=== PATIENT | female | born 1950 | race Caucasian/White ===

== ENCOUNTER → 2017-11-01 11:47 | Outpatient (CLI) | payer MEDICARE, SELFPAY ==
--- NOTE | 2017-11-01 11:48 | DI.MRI.S_ITS ---
PROCEDURE: MR LUMBAR SPINE WO CON INDICATIONS: Lumbosacral spondylosis with left greater right lower extrem TECHNIQUE: Noncontrast sagittal T1 spin echo and T2 fast echo, sagittal STIR, axial T1 and T2 fast spin echo through the lumbar spine. In cases with scoliosis, additional coronal T2 fast spin echo may be performed. COMPARISON: None. FINDINGS: Image quality: Excellent. Alignment and Curvature: There is normal bony alignment. Bone Marrow: Marrow is of normal overall signal. No acute vertebral body compression fractures. Scattered foci are seen, which are hyperintense on T1-weighted and T2-weighted imaging, which are most consistent with benign vertebral body hemangiomas. Spinal Cord: Conus medullaris terminates at the L1 level. Visualized cord demonstrates normal signal and size. Paraspinous Soft Tissues: No paravertebral masses. T12-L1: Normal appearance. L1-L2: Normal appearance. L2-L3: Normal appearance. L3-L4: Normal appearance. L4-L5: Normal appearance. L5-S1: The disc height is well-preserved. Loss of disc signal is seen at this level. Mild facet joint hypertrophy is seen. Ubod-bi-byexsxtk bilateral neural foraminal narrowing is seen, left greater than right. Minimal central canal narrowing is seen. IMPRESSION: Focal L5-S1 degenerative change is seen. Dictated by: Frank Mata M.D. on 11/01/2017 at 13:10 Approved by: Frank Mata M.D. on 11/01/2017 at 13:12
== END ==
PROVIDERS: PCP Internal Medicine Geriatric Medicine; Visit Provider Physical Medicine & Rehabilitation
DX: M47.27 Other spondylosis with radiculopathy, lumbosacral region (principal); M48.07 Spinal stenosis, lumbosacral region; R25.2 Cramp and spasm
CPT/HCPCS: 72148

== ENCOUNTER → 2017-11-04 11:28 | Outpatient (CLI) | payer MEDICARE, SELFPAY ==
--- NOTE | 2017-11-04 11:30 | DI.RAD.S_ITS ---
PROCEDURE: XR LUMBAR SPINE MIN 4V INDICATIONS: Other intervertebral disc displacement, lumbosacral region TECHNIQUE: 5 views of the lumbar spine were acquired, including both obliques. COMPARISON: None. FINDINGS: Bones: 5 nonrib-bearing vertebrae are present. There is normal bony alignment. No vertebral body compression fractures. No suspicious bony lesions. Soft tissues: Overlying bowel gas pattern is normal. No suspicious soft tissue calcifications. Oblique images: No pars defects. IMPRESSION: There is only a mild degree of degenerative disc disease is seen at L5-S1, and mild facet osteoarthritis along the lumbosacral spine also best seen at L5-S1. No subluxation is associated. No definite spinal or foraminal stenosis is found. Dictated by: Christopher Llamas M.D. on 11/04/2017 at 12:00 Approved by: Christopher Llamas M.D. on 11/04/2017 at 12:01
== END ==
PROVIDERS: PCP Internal Medicine Geriatric Medicine; Visit Provider Physical Medicine & Rehabilitation
DX: M51.17 Intervertebral disc disorders with radiculopathy, lumbosacral region (principal); M47.27 Other spondylosis with radiculopathy, lumbosacral region; M25.50 Pain in unspecified joint; R25.2 Cramp and spasm; M54.17 Radiculopathy, lumbosacral region; M51.27 Other intervertebral disc displacement, lumbosacral region
CPT/HCPCS: 72110; 99213

== ENCOUNTER 2017-11-15 13:05 | Outpatient (CLI) | payer MEDICARE, SELFPAY ==
[2017-11-15] VITALS (11 sets, daily range): BP systolic 118–137; BP diastolic 65–86; PULSE 59–65; RESP 16–18; TEMP 35.9; O2SAT 95–98
--- NOTE | 2017-11-15 13:06 | DI.RAD.S_ITS ---
PROCEDURE: PAIN L/S TRANSFORAMINAL INJECT INDICATIONS: RADICULOPATHY FINDINGS: Fluoroscopic spot filming was performed to verify placement of spinal needles at the L5-S1 level(s), as labeled on the films. Appropriate location(s) of the needle tip(s) was confirmed by injection of iodinated contrast. IMPRESSION: Fluoroscopy for pain management. Dictated by: Bharat Fitch M.D. on 11/15/2017 at 16:25 Approved by: Bharat Fitch M.D. on 11/15/2017 at 16:25
--- NOTE | 2017-11-15 14:02 | P.PCN_ITS ---
Procedures Date/Time Date of procedure: 11/15/17 Time of procedure: 13:58 General Procedure description: PREOP DIAGNOSIS 1. FORMAINAL STENOSIS WITH LE SYMPTOMS POST OP DIAGNOSIS 1. FORMAINAL STENOSIS WITH LE SYMPTOMS PROCEDURES 1. FLUOROSCOPICALLY GUIDED CONTRAST CONTROLLED TRANSFORAMINAL EPIDURAL STEROID INJECTION - Left L5/S1 PHYSICIAN: Mikal Willis DO INDICATIONS: Monique is referred by for treatment of Foraminal Stenosis with Right LE Symptoms FINDINGS Foraminal Nerve Root Compression secondary to disc disease and facet hypertrophy DESCRIPTION OF PROCEDURE: Following denial of allergy and review of potential side effects and complications, including, but not necessarily limited to, infection, allergic reaction, local tissue breakdown, stroke, temporary or permanent nerve injury, paralysis, and possible , the patient indicated that the patient understood and agreed to proceed. An informed consent document was signed by the patient, witnessed by a nurse, and placed in the patient's chart. Additionally, other treatment options including medications, modalities, and physical therapy were reviewed with the patient. After review of previous anaesthesic history and IV conscious sedation the patient was deemed safe to proceed with todays procedure with IV conscious sedation as ASA class II designation. Safety time-out was performed to confirm patient ID, procedure to be performed and site of procedure. IV sedation was accomplished with a combination of 3mg was administered by the RN after DO order , titrated to patient comfort during the course of the procedure while the patient remained responsive to all verbal commands In the prone position following sterile prep and drape of the lumbar region, the Left L5/S1 posterior neuroforamen was identified fluoroscopically. The skin was anesthetized via a 25-gauge 1.5-inch needle with 1% lidocaine solution. At this point, a 25-gauge 3.5-inch spinal needle was atraumatically introduced and advanced under fluoroscopic guidance through the posterior Left L5/S1 neuroforamen to approximately the anterior aspect of the canal. Depth was confirmed on lateral view. Following negative aspiration, injection of approximately 1.5 cc of Isovue 200 under live fluoroscopy in the AP view confirmed excellent flow along the nerve root, into the epidural space without vascular or intrathecal uptake observed Radiological data, including multiple fluoroscopic views of the lumbosacral spine, reveal a spinal needle at the Right L5/S1 posterior neuroforamen. Subsequent views show flow of contrast material flowing superiorly and inferiorly along the nerve root confirming epidural flow. Subsequently, a test dose of 1.5 cc of 1% lidocaine solution was administered and patient was observed for two minutes for signs or symptoms of complications , including abdominal pain, shortness of breath, bilateral upper or lower extremity weakness, nausea and vomiting, prior to steroid injection. At this point, a total of 3 cc or 20 mg of dexamethasone and 80mg Depo Medrol was injected without incident. The procedure tolerated the procedure well without signs or symptoms of complications prior to transfer to the recovery area continued monitoring without incident. The patient was then transferred to the recovery area where they were observed for an appropriate time after the injection. The patient reported a VAS score of 7 prior to the procedure and a post-procedure VAS of 0. Total Fluoroscopy Time: 20.9 seconds Total Conscious Sedation Time: 24min POST OP INSTRUCTIONS The patient was provided a Pain Log to continue to record their response to the target-specific procedure prior to follow-up visit with their referring physician. Additionally, specific post-injection care instructions and a contact number to our office were provided if concerns arise regarding possible complications associated with the procedure are suspected. Mikal Willis DO Complications: none
[2017-11-15] MEDS: MIDAZOLAM 5 MG/5 ML VIAL IV (14:06)
[2017-11-15] MEDS: BUPIVACAINE 0.25% (PF) VIAL 2 ML INJ (14:11)
[2017-11-15] MEDS: methylPREDNISolone acetate 80 MG/ML VIAL INJ (14:11)
[2017-11-15] MEDS: DEXAMETHASONE 10 MG/ML VIAL 20 MG INJ (14:11)
[2017-11-15] MEDS: IOPAMIDOL 15 ML VIAL 3 ML INJ (14:11)
== END 2017-11-15 15:17 ==
LOC: RAD 13:06
PROVIDERS: PCP Internal Medicine Geriatric Medicine; Visit Provider Physical Medicine & Rehabilitation
DX: M48.07 Spinal stenosis, lumbosacral region (principal); M51.17 Intervertebral disc disorders with radiculopathy, lumbosacral region; M47.27 Other spondylosis with radiculopathy, lumbosacral region
CPT/HCPCS: 64483; 99152; J1040; J1100; J2250

== ENCOUNTER 2018-06-20 10:16 | Outpatient (CLI) | payer MEDICARE, SELFPAY ==
[2018-06-20] VITALS (8 sets, daily range): BP systolic 124–156; BP diastolic 73–86; PULSE 67–73; RESP 16–18; TEMP 36.4; O2SAT 93–98
--- NOTE | 2018-06-20 10:18 | DI.RAD.S_ITS ---
PROCEDURE: PAIN L INTERLAMINAR/CAUDAL INJ INDICATIONS: INTERVERTEBRAL DISC DISPLACEMENT FINDINGS: Fluoroscopic spot filming was performed to verify placement of spinal needles at the L5-S1 level(s), as labeled on the films. Appropriate location(s) of the needle tip(s) was confirmed by injection of iodinated contrast. Dictated by: Junior Aleman M.D. on 06/21/2018 at 9:36 Approved by: Junior Aleman M.D. on 06/21/2018 at 9:36
[2018-06-20] MEDS: DEXAMETHASONE 10 MG/ML VIAL 20 MG INJ (11:24)
[2018-06-20] MEDS: MIDAZOLAM 5 MG/5 ML VIAL IV (11:24)
[2018-06-20] MEDS: BETAMETHASONE 30 MG/5 ML MDV 6 MG INJ (11:24)
[2018-06-20] MEDS: BUPIVACAINE 0.25% (PF) VIAL 2 ML INJ (11:24)
[2018-06-20] MEDS: IOPAMIDOL 15 ML VIAL 3 ML INJ (11:24)
--- NOTE | 2018-06-20 11:32 | PC.NURSE ---
PT NOTED TO BE MORE ALERT AND NOW FULLY AWAKE. CONTINUES TO C/O NUMBNESS BELOW WAIST
--- NOTE | 2018-06-20 11:41 | P.PCN_ITS ---
Procedures Date/Time Date of procedure: 06/20/18 Time of procedure: 11:39 General Procedure description: PROVIDER: Mikal Willis DO Operative Note PREOP DIAGNOSIS 1. HNP WITH RADICULAR FEATURES, 2. MULTILEVEL CENTRAL STENOSIS, POST OP DIAGNOSIS 1. HNP WITH RADICULAR FEATURES, 2. MULTILEVEL CENTRAL STENOSIS, PROCEDURES 1. FLUORSCOPICALLY GUIDED CONTRAST CONTROLLED INTERLAMINAR EPIDURAL STEROID INJECTION - L5/S1 PHYSICIAN: Mikal Willis DO INDICATIONS Monique is referred by Dr. Fernandes for treatment of Bilateral Foraminal Stenosis L>R LE symptoms. FINDINGS Multilevel Central Spinal Stenosis with Nerve Root Compression DESCRIPTION OF PROCEDURE Fluoroscopically guided, contrast-controlled L5/S1 translaminar epidural steroid injection. Following denial of allergy and review of potential side effects and complications, including, but not necessarily limited to, infection, allergic reaction, local tissue breakdown, temporary as well as permanent nerve injury, paralysis, stroke and possible , the patient indicated that the patient understood and agreed to proceed. An informed consent document was signed by the patient, witnessed by a nurse, and placed in the patient's chart. Additionally, other treatment options including modalities, medications, and physical therapy were reviewed with the patient. After review of previous anaesthesic history and IV conscious sedation the patient was deemed safe to proceed with todays procedure with IV conscious sedation as ASA class II designation. Safety time-out was performed to confirm patient ID, procedure to be performed and site of procedure. IV sedation was accomplished with a combination of 3mg of Versed administered by the RN after DO order, titrated to patient comfort during the course of the procedure while the patient remained responsive to all verbal commands. In the prone position, following sterile prep and drape of the lumbar region, the L5/S1 translaminar space was identified fluoroscopically. The skin was anesthetized via a 25-gauge, 1.5-inch needle with 1% lidocaine solution. At this point, a 22-gauge short bevel spinal needle was atraumatically introduced and advanced under fluoroscopic guidance into the region of the L5/S1 patrick slaminar space. Depth was confirmed on lateral view. Radiological data, including multiple fluoroscopic views of the lumbar spine, reveal a spinal needle at the L5/S1 translaminar space. Lateral views then show placement of the needle in the epidural space. Subsequent views show contrast material flowing superiorly and inferiorly in the epidural space. No vascular or intrathecal uptake is observed. At this point, using loss of resistance technique with saline and air, the epidural space was entered. This was confirmed following negative aspiration with injection of approximately 1.5 cc of Isovue 200, showing excellent epidural flow without vascular or intrathecal uptake. At this point, 1 cc of 1% lidocaine solution combined with 3cc including 20mg of dexamethasone and 6mg of betamethasone was injected without incident. The patent tolerated the procedure without signs of symptoms of complications prior to transfer to the recovery area for further monitoring. The patient was then transferred to the recovery area where they were observed for an appropriate period of time after the injection. The patient reported a VAS score of 6 prior to the procedure and a post-procedure VAS of 0. Total Fluoroscopy Time: 11.8 seconds Total Conscious Sedation Time: 24min POST OP INSTRUCTIONS The patient was provided a Pain Log to continue to record their response to the target-specific procedure prior to follow-up visit with their referring physician. Additionally, specific post-injection care instructions and a contact number to our office were provided if concerns arise regarding possible complications associated with the procedure are suspected. Mikal Willis DO Complications: none
--- NOTE | 2018-06-20 11:45 | PC.NURSE ---
ACCEPTED CARE OF PT IN POST PROC AREA IN STABLE CONDITION
--- NOTE | 2018-06-20 12:24 | PC.NURSE ---
pt tolerated procedure well. Able to get off table with standby assist. Transferred via wheelchair to pre procedure room and continued monitoring with Nahed BELL.
== END 2018-06-20 12:19 | disposition home or self-care (01) ==
LOC: RAD 10:17
PROVIDERS: PCP Internal Medicine Geriatric Medicine; Visit Provider Physical Medicine & Rehabilitation
DX: M51.17 Intervertebral disc disorders with radiculopathy, lumbosacral region (principal); M48.07 Spinal stenosis, lumbosacral region
CPT/HCPCS: 62323; 99152; J0702; J1100; J2250; J3010

== ENCOUNTER → 2018-07-12 13:46 | Outpatient (CLI) | payer MEDICARE, SELFPAY ==
--- NOTE | 2018-07-12 13:48 | DI.RAD.S_ITS ---
PROCEDURE: XR KNEE STANDING BI INDICATIONS: Eval TECHNIQUE: A set of 3 views of the right knee, and 3 views of the left knee. COMPARISON: None. FINDINGS: Bones: No acute fractures or dislocations. There is asymmetric joint space thinning at the lateral compartment of the left knee, when compared to normal appearance on the right. Patellar alignment is normal on the sunrise view. No suspicious bony lesions. Joint spaces appear normal with weightbearing. Soft tissues: No knee joint effusions. No suspicious soft tissue calcification. IMPRESSION: Asymmetric knee joint osteoarthritis greater on the left at the lateral compartment and at the right. No joint effusion or intra-articular loose body, or prior trauma is seen. Dictated by: Christopher Llamas M.D. on 07/12/2018 at 15:15 Approved by: Christopher Llamas M.D. on 07/12/2018 at 15:16
== END ==
PROVIDERS: PCP Internal Medicine Geriatric Medicine; Visit Provider Registered Nurse
DX: M25.561 Pain in right knee (principal); M25.562 Pain in left knee; M17.0 Bilateral primary osteoarthritis of knee; M20.60 Acquired deformities of toe(s), unspecified, unspecified foot; M25.50 Pain in unspecified joint; M47.27 Other spondylosis with radiculopathy, lumbosacral region; G89.29 Other chronic pain
CPT/HCPCS: 73565; 99214

== ENCOUNTER → 2019-12-24 13:21 | Outpatient (CLI) | payer MEDICARE, SELFPAY ==
--- NOTE | 2019-12-24 13:24 | DI.RAD.S_ITS ---
PROCEDURE: XR LUMBAR SPINE MIN 4V INDICATIONS: low back pain TECHNIQUE: 5 views of the lumbar spine were acquired. COMPARISON: [facility], CT, CT ABDOMEN PELVIS WITH CONTRAST, 11/28/2018, 13:13. [facility], CR, XR LUMBAR SPINE MIN 4V, 11/04/2017, 11:06. FINDINGS: Bones: 5 nonrib-bearing vertebrae are present. Minimal scoliosis. No vertebral body compression fractures. No suspicious bony lesions. Mild degenerative change demonstrable by small anterior osteophytes. Mild L4-L5 and L5-S1 facet joint hypertrophy. Findings similar to the prior exam. Soft tissues: Overlying bowel gas pattern is normal. No suspicious soft tissue calcifications. Oblique images: No pars defects. IMPRESSION: No compression fracture. Overall mild degenerative change similar to 2018. Dictated by: César Poe M.D. on 12/24/2019 at 15:26 Approved by: César Poe M.D. on 12/24/2019 at 15:28
== END ==
PROVIDERS: PCP Internal Medicine Geriatric Medicine; Referring Provider Physical Medicine & Rehabilitation; Visit Provider Physical Medicine & Rehabilitation
DX: M47.27 Other spondylosis with radiculopathy, lumbosacral region (principal); M47.26 Other spondylosis with radiculopathy, lumbar region
CPT/HCPCS: 72110; 99213

== ENCOUNTER → 2020-01-01 13:41 | Outpatient (CLI) | payer MEDICARE, SELFPAY ==
[2020-01-01 16:08] LABS: COVID19 -Nasal RAPID Negative (Negative)
== END ==
PROVIDERS: PCP Internal Medicine Geriatric Medicine; Visit Provider Physical Medicine & Rehabilitation
DX: Z11.59 Encounter for screening for other viral diseases (principal); Z01.812 Encounter for preprocedural laboratory examination
CPT/HCPCS: 87635; C9803

== ENCOUNTER 2020-01-03 09:54 | Outpatient (CLI) | payer MEDICARE, SELFPAY ==
[2020-01-03] VITALS (7 sets, daily range): BP systolic 125–162; BP diastolic 60–82; PULSE 68–76; RESP 9–18; TEMP 36.1; O2SAT 91–95
--- NOTE | 2020-01-03 09:58 | DI.RAD.S_ITS ---
PROCEDURE: PAIN L/S TRANSFORAMINAL INJECT INDICATIONS: SPONDYLOSIS COMPARISON: [facility], , PAIN L/S TRANSFORAMINAL INJECT, 11/15/2017, 14:06. FINDINGS: Fluoroscopic spot filming was performed to verify placement of a spinal needle on the right at the L5-S1 level, as labeled on the films. Appropriate location of the needle tip was confirmed by injection of iodinated contrast. IMPRESSION: No significant intraprocedural abnormality. Dictated by: Frank Mata M.D. on 01/03/2020 at 11:15 Approved by: Frank Mata M.D. on 01/03/2020 at 11:16
[2020-01-03] MEDS: MIDAZOLAM 5 MG/5 ML VIAL IV (11:02)
[2020-01-03] MEDS: fentaNYL 100 MCG/2 ML INJ 50 MCG IV (11:02)
[2020-01-03] MEDS: BETAMETHASONE 30 MG/5 ML MDV 6 MG INJ (11:09)
[2020-01-03] MEDS: IOPAMIDOL 15 ML VIAL 3 ML INJ (11:09)
[2020-01-03] MEDS: BUPIVACAINE 0.25% (PF) VIAL 2 ML INJ (11:09)
[2020-01-03] MEDS: DEXAMETHASONE 10 MG/ML VIAL 20 MG INJ (11:09)
--- NOTE | 2020-01-03 11:16 | PM.PROC.IR.1 ---
Date/Time/Diagnoses Date of procedure: 01/03/20 Time of procedure: 11:16 Pre-procedure diagnosis: 1. FORAMINAL STENOSIS WITH LE SYMPTOMS Post-procedure diagnosis: same Procedure Notes Procedure: 1. FLUOROSCOPICALLY GUIDED CONTRAST CONTROLLED TRANSFORAMINAL EPIDURAL STEROID INJECTION - RIGHT L5/S1 TFESI Indications: Monique Kline is referred by Dr. Fernandes for treatment of Foraminal Stenosis with right LE Symptoms Physician: Mikal Willis Total Fluoroscopy time (seconds): 12 Total sedation minutes: 12 Complications: none Procedure in detail & Post-procedure care: FINDINGS Foraminal Nerve Root Compression secondary to disc disease and facet hypertrophy DESCRIPTION OF PROCEDURE Following review of allergy and review of potential side effects and complications, including, but not necessarily limited to, infection, allergic reaction, local tissue breakdown, stroke, temporary or permanent nerve injury, paralysis, and possible , the patient indicated that the patient understood and agreed to proceed. An informed consent document was signed by the patient, witnessed by a nurse, and placed in the patient's chart. Additionally, other treatment options including medications, modalities, and physical therapy were reviewed with the patient. After review of previous anaesthesic history and IV conscious sedation the patient was deemed safe to proceed with today?s procedure with IV conscious sedation as ASA class II designation. Safety time-out was performed to confirm patient ID, procedure to be performed and site of procedure. IV sedation was accomplished with a combination of 2mg of Versed and 50mcg of Fentanyl was administered by the RN after DO order, titrated to patient comfort during the course of the procedure while the patient remained responsive to all verbal commands In the prone position following sterile prep and drape of the lumbar region, the right L5/S1 posterior neuroforamen was identified fluoroscopically. The skin was anesthetized via a 25-gauge 1.5-inch needle with 1% lidocaine solution. At this point, a 22-gauge 5-inch spinal needle was atraumatically introduced and advanced under fluoroscopic guidance through the posterior right L5/S1 neuroforamen to approximately the anterior aspect of the canal. Depth was confirmed on lateral view. Following negative aspiration, injection of approximately 1.5cc of Isovue 200 under live fluoroscopy in the AP view confirmed excellent flow along the nerve root, into the epidural space without vascular or intrathecal uptake observed Radiological data, including multiple fluoroscopic views of the lumbosacral spine, reveal a spinal needle at the right L5/S1 posterior neuroforamen. Subsequent views show flow of contrast material flowing superiorly and inferiorly along the nerve root confirming epidural flow. Subsequently, a test dose of 1.5cc of 1% lidocaine solution was administered and patient was observed for two minutes for signs or symptoms of complications, including abdominal pain, shortness of breath, bilateral upper or lower extremity weakness, nausea and vomiting, prior to steroid injection. At this point, a total of 3cc or 20mg of dexamethasone and 6mg betamethasone was injected without incident. The procedure tolerated the procedure well without signs or symptoms of complications prior to transfer to the recovery area continued monitoring without incident. The patient was then transferred to the recovery area where they were observed for an appropriate time after the injection. The patient reported a VAS score of 7 prior to the procedure and a post-procedure VAS of 0. POST OP INSTRUCTIONS The patient was provided a Pain Log to continue to record their response to the target-specific procedure prior to follow-up visit with their referring physician. Additionally, specific post-injection care instructions and a contact number to our office were provided if concerns arise regarding possible complications associated with the procedure are suspected.
== END 2020-01-03 11:33 | disposition home or self-care (01) ==
LOC: RAD 09:57
PROVIDERS: PCP Internal Medicine Geriatric Medicine; Referring Provider Physical Medicine & Rehabilitation; Visit Provider Physical Medicine & Rehabilitation
DX: M54.17 Radiculopathy, lumbosacral region (principal); M47.817 Spondylosis without myelopathy or radiculopathy, lumbosacral region
CPT/HCPCS: 64483; 99152; J0702; J1100; J2250; J3010

== ENCOUNTER → 2020-03-31 13:47 | Outpatient (CLI) | payer MEDICARE, SELFPAY ==
--- NOTE | 2020-03-31 13:48 | DI.RAD.S_ITS ---
PROCEDURE: XR KNEE LT 3V INDICATIONS: knee djd TECHNIQUE: 3 views of the knee were acquired. COMPARISON: [facility], CR, XR KNEE STANDING BI, 07/12/2018, 14:07. FINDINGS: Bones: No fractures or dislocations. No suspicious bony lesions. Minimal to mild generalized narrowing can be seen of the knee joint spaces. Soft tissues: No joint effusion. No suspicious soft tissue calcifications. IMPRESSION: Plain film study within normal limits for age. If it would be helpful for clinical management decision making, please consider a dedicated knee MRI for further evaluation (assuming that there is no contraindication). Dictated by: Frank Mata M.D. on 03/31/2020 at 13:47 Approved by: Frank Mata M.D. on 03/31/2020 at 13:48
== END ==
PROVIDERS: PCP Internal Medicine Geriatric Medicine; Referring Provider Physical Medicine & Rehabilitation; Visit Provider Physical Medicine & Rehabilitation
DX: M17.12 Unilateral primary osteoarthritis, left knee (principal); M54.17 Radiculopathy, lumbosacral region
CPT/HCPCS: 20611; 73562; 99214; J7318

== ENCOUNTER → 2023-02-22 14:30 | Outpatient (CLI) | payer MEDICARE, SELFPAY ==
--- NOTE | 2023-02-22 14:34 | DI.RAD.S_ITS ---
PROCEDURE: XR LUMBAR SPINE MIN 4V INDICATIONS: BACK PAIN TECHNIQUE: 5 views of the lumbar spine were acquired, including bilateral oblique views. COMPARISON: [facility], , XR LUMBAR SPINE MIN 4V, 12/24/2019, 13:34. FINDINGS: Bones: 5 nonrib-bearing vertebrae are present. There is very mild leftward curvature of lumbar spine with apex at L2 level . Mild degenerative endplate changes are noted throughout lumbar spine.. No vertebral body compression fractures. No suspicious bony lesions. Soft tissues: Overlying bowel gas pattern is normal. No suspicious soft tissue calcifications. Oblique images: No pars defects. IMPRESSION: Mild degenerative disc disease throughout lumbar spine. No acute compression fracture or spondylolisthesis. Very mild leftward curvature of lumbar spine centered at L2 level. No gross pars defects. Dictated by: Ray Turner M.D. on 02/22/2023 at 16:45 Approved by: Ray Turner M.D. on 02/22/2023 at 16:46
== END ==
PROVIDERS: PCP Internal Medicine Geriatric Medicine; Referring Provider Physical Medicine & Rehabilitation; Visit Provider Physical Medicine & Rehabilitation
DX: M47.27 Other spondylosis with radiculopathy, lumbosacral region (principal); M51.16 Intervertebral disc disorders with radiculopathy, lumbar region; M41.9 Scoliosis, unspecified; M17.0 Bilateral primary osteoarthritis of knee
CPT/HCPCS: 72110; 99214

== ENCOUNTER → 2023-03-07 12:20 | Outpatient (CLI) | payer MEDICARE, SELFPAY ==
--- NOTE | 2023-03-07 12:22 | DI.MRI.S_ITS ---
PROCEDURE: MR LUMBAR SPINE WO CON INDICATIONS: Left L5 radiculopathy TECHNIQUE: Noncontrast sagittal T1 spin echo and T2 fast echo, sagittal STIR, and T2 fast spin echo through the lumbar spine. In cases with scoliosis, additional coronal T2 fast spin echo may be performed. COMPARISON: [facility], CR, XR LUMBAR SPINE MIN 4V, 02/22/2023, 14:37. [facility], MR, MR LUMBAR SPINE WO CON, 11/01/2017, 12:11. FINDINGS: Image quality: Excellent. Alignment and Curvature: There is normal bony alignment. Bone Marrow: Marrow is of normal overall signal. No acute vertebral body compression fractures. Spinal Cord: Conus medullaris terminates at the L1-L2 and level. Visualized cord demonstrates normal signal and size. Paraspinous Soft Tissues: No paravertebral masses. T12-L1: Mild facet hypertrophy. No canal stenosis or foraminal stenosis. L1-L2: Mild facet hypertrophy. No canal stenosis or foraminal stenosis. L2-L3: Mild facet hypertrophy. No canal stenosis or foraminal stenosis. L3-L4: Mild facet hypertrophy. No canal stenosis or foraminal stenosis. L4-L5: Facet hypertrophy. Disc bulge. No canal stenosis. Mild bilateral foraminal stenosis. L5-S1: Normal appearance. IMPRESSION: 1. Underlying multilevel facet arthropathy. 2. Development of a large medially directed facet joint cyst off of the left facet at L4-L5, impinging on multiple left-sided nerve root structures, including the left L5 nerve root in the left lateral recess. Dictated by: Homero Luna M.D. on 03/07/2023 at 19:21 Approved by: Homero Luna M.D. on 03/07/2023 at 19:30
== END ==
PROVIDERS: PCP Internal Medicine Geriatric Medicine; Referring Provider Physical Medicine & Rehabilitation; Visit Provider Physical Medicine & Rehabilitation
DX: M47.26 Other spondylosis with radiculopathy, lumbar region (principal); M48.061 Spinal stenosis, lumbar region without neurogenic claudication; M53.86 Other specified dorsopathies, lumbar region
CPT/HCPCS: 72148

== ENCOUNTER 2023-03-22 14:56 | Outpatient (CLI) | payer MEDICARE, SELFPAY ==
[2023-03-22] VITALS (8 sets, daily range): BP systolic 130–205; BP diastolic 70–106; PULSE 75–85; RESP 13–20; TEMP 36.6; O2SAT 92–97
--- NOTE | 2023-03-22 15:30 | DI.RAD.S_ITS ---
PROCEDURE: PAIN L/S TRANSFORAMINAL INJECT INDICATIONS: STENOSIS COMPARISON: [facility], , PAIN L/S TRANSFORAMINAL INJECT, 01/03/2020, 11:04. FINDINGS: Fluoroscopic spot filming was performed to verify placement of spinal needles at the left side of L5-S1 level(s), as labeled on the films. Appropriate location(s) of the needle tip(s) was confirmed by injection of iodinated contrast. IMPRESSION: Fluoro guidance was provided intraoperatively for left-sided L5-S1 t transforaminal epidural steroid injection performed by ordering physician. Dictated by: Ray Turner M.D. on 03/22/2023 at 17:00 Approved by: Ray Turner M.D. on 03/22/2023 at 17:01
[2023-03-22] MEDS: MIDAZOLAM 2 MG/2 ML VIAL IV (16:10)
[2023-03-22] MEDS: BUPIVACAINE 0.25% (PF) VIAL 2 ML INJ (16:13)
[2023-03-22] MEDS: DEXAMETHASONE 10 MG/ML VIAL INJ (16:14)
[2023-03-22] MEDS: BETAMETHASONE 30 MG/5 ML MDV 6 MG INJ (16:14)
[2023-03-22] MEDS: iopamidoL 15 ML VIAL 3 ML INJ (16:14)
--- NOTE | 2023-03-22 16:33 | P.PCN_ITS ---
Date/Time/Diagnoses Date of procedure: 03/22/23 Time of procedure: 16:33 Pre-procedure diagnosis: 1. FORAMINAL STENOSIS WITH LE SYMPTOMS Post-procedure diagnosis: same Procedure Notes Procedure: 1. FLUOROSCOPICALLY GUIDED CONTRAST CONTROLLED TRANSFORAMINAL EPIDURAL STEROID INJECTION - LEFT L4/5 Indications: Tristin is referred by Dr. Fernandes for treatment of Foraminal Stenosis with Left LE Symptoms Physician: Mikal Willis Total Fluoroscopy time (seconds): 16 Total sedation minutes: 16 Complications: none Procedure in detail & Post-procedure care: FINDINGS Foraminal Nerve Root Compression secondary to disc disease and facet hypertrophy DESCRIPTION OF PROCEDURE Following review of allergy and review of potential side effects and complications, including, but not necessarily limited to, infection, allergic reaction, local tissue breakdown, stroke, temporary or permanent nerve injury, paralysis, and possible , the patient indicated that the patient understood and agreed to proceed. An informed consent document was signed by the patient, witnessed by a nurse, and placed in the patient's chart. Additionally, other treatment options including medications, modalities, and physical therapy were reviewed with the patient. After review of previous anaesthesic history and IV conscious sedation the patient was deemed safe to proceed with today?s procedure with IV conscious sedation as ASA class II designation. Safety time-out was performed to confirm patient ID, procedure to be performed and site of procedure. IV sedation was accomplished with a combination of 2mg of Versed administered by the RN after DO order, titrated to patient comfort during the course of the procedure while the patient remained responsive to all verbal commands In the prone position following sterile prep and drape of the lumbar region, the left L4/5 posterior neuroforamen was identified fluoroscopically. The skin was anesthetized via a 25-gauge 1.5-inch needle with 1% lidocaine solution. At this point, a 22-gauge 5-inch spinal needle was atraumatically introduced and advanced under fluoroscopic guidance through the posterior left L4/5 neuroforamen to approximately the anterior aspect of the canal. Depth was confirmed on lateral view. Following negative aspiration, injection of approximately 1.5 cc of Isovue 200 under live fluoroscopy in the AP view confirmed excellent flow along the nerve root, into the epidural space without vascular or intrathecal uptake observed Radiological data, including multiple fluoroscopic views of the lumbosacral spine, reveal a spinal needle at the left L4/5 posterior neuroforamen. Subsequent views show flow of contrast material flowing superiorly and inferiorly along the nerve root confirming epidural flow. Subsequently, a test dose of 1.5 cc of 1% lidocaine solution was administered and patient was observed for two minutes for signs or symptoms of complications, including abdominal pain, shortness of breath, bilateral upper or lower extremity weakness, nausea and vomiting, prior to steroid injection. At this point, a total of 2cc or 10mg of dexamethasone and 6mg of betamethasone was injected without incident. The procedure tolerated the procedure well without signs or symptoms of complications prior to transfer to the recovery area continued monitoring without incident. The patient was then transferred to the recovery area where they were observed for an appropriate time after the injection. The patient reported a VAS score of 7 prior to the procedure and a post- procedure VAS of 1. POST OP INSTRUCTIONS The patient was provided a Pain Log to continue to record their response to the target-specific procedure prior to follow-up visit with their referring physician. Additionally, specific post-injection care instructions and a contact number to our office were provided if concerns arise regarding possible complications associated with the procedure are suspected.
== END 2023-03-22 16:48 | disposition home or self-care (01) ==
PROVIDERS: PCP Internal Medicine Geriatric Medicine; Referring Provider Physical Medicine & Rehabilitation; Visit Provider Physical Medicine & Rehabilitation
DX: M48.061 Spinal stenosis, lumbar region without neurogenic claudication (principal); M51.16 Intervertebral disc disorders with radiculopathy, lumbar region; M47.26 Other spondylosis with radiculopathy, lumbar region
CPT/HCPCS: 64483; 99152; J0702; J1100; J2250; J3490

== ENCOUNTER → 2023-08-23 10:09 | Outpatient (CLI) | payer MEDICARE, SELFPAY ==
--- NOTE | 2023-08-23 10:10 | DI.RAD.S_ITS ---
PROCEDURE: XR HIP W PEL IF DONE BILLY MIN 4V INDICATIONS: LEFT HIP PAIN TECHNIQUE: AP pelvis with lateral view(s) of the bilateral hip(s). COMPARISON: None. FINDINGS: Bones: No fractures or dislocations. Pelvic ring appears intact. No suspicious bony lesions. Mild bilateral hip degenerative arthritis. Soft tissues: The visualized bowel gas pattern is normal. No suspicious soft tissue calcifications. IMPRESSION: Mild bilateral hip degenerative arthritis. Dictated by: Homero Luna M.D. on 08/23/2023 at 11:36 Approved by: Homero Luna M.D. on 08/23/2023 at 11:37
== END ==
PROVIDERS: PCP Internal Medicine Geriatric Medicine; Referring Provider Physical Medicine & Rehabilitation; Visit Provider Physical Medicine & Rehabilitation
DX: M16.0 Bilateral primary osteoarthritis of hip (principal); M25.552 Pain in left hip
CPT/HCPCS: 73522

== ENCOUNTER → 2023-12-16 15:10 | Outpatient (CLI) | payer MEDICARE, SELFPAY ==
--- NOTE | 2023-12-16 15:11 | DI.MRI.S_ITS ---
PROCEDURE: MR ANKLE LT WO CON INDICATIONS: left achilles tendonopathy TECHNIQUE: Noncontrast sagittal T1 spin echo and T2 fast spin echo with fat saturation, axial proton density fast spin echo and T2 fast spin echo with fat saturation, coronal T1 spin echo and T2 fast spin echo with fat saturation through the ankle/hindfoot. COMPARISON: None. FINDINGS: Image quality: Excellent. Bones and joints: No acute trabecular bone injury or fracture. No hindfoot coalitions. No osteochondral injuries of the talar dome. Medial structures: The deltoid ligament and the spring ligament complex are intact. The posterior tibialis, flexor digitorum longus, and flexor hallucis longus tendons are intact. The posterior tibial neurovascular bundle appears normal within the tarsal tunnel, without extrinsic mass effect. Lateral structures: Remote prior low-grade sprain of the anterior talofibular ligament. The calcaneofibular and posterior talofibular ligaments are intact. The anterior and posterior tibiofibular ligaments are intact. Chronic longitudinal split tearing of the peroneus brevis tendon at the level of the distal fibula with tendon reconstitution at the level of the peroneal tubercle. Mild peroneus brevis and longus tenosynovitis. The sinus tarsi demonstrates normal fatty signal. Anterior structures: The tibialis anterior, extensor hallucis longus, and extensor digitorum longus tendons appear intact. Posterior and plantar structures: Severe Achilles tendinosis. Partial intrasubstance tearing is seen at the midportion involving less than 25 % of the cross-sectional area of the tendon. Retro Achilles fluid collection is seen measuring approximately 2.0 x 2.1 x 0.4 cm. The proximal plantar fascia is intact. No abductor digiti minimi muscle atrophy to suggest Gibbons neuropathy. IMPRESSION: 1. Severe Achilles tendinosis with partial intrasubstance tearing at the midportion involving less than 25 % of the cross-sectional area of the tendon fibers. 2. Small retro-Achilles bursal effusion. 3. Chronic longitudinal split tearing of the peroneus brevis tendon at the level of the distal fibula with tendon reconstitution at the level of the peroneal tubercle. Mild peroneus brevis and longus tenosynovitis. 4. Remote prior low-grade sprain of the anterior talofibular ligament. Approved by: Anthony Wilson M.D. on 12/20/2023 at 9:45
== END ==
PROVIDERS: PCP Internal Medicine Geriatric Medicine; Referring Provider Physical Medicine & Rehabilitation; Visit Provider Physical Medicine & Rehabilitation
DX: M76.62 Achilles tendinitis, left leg (principal); S96.812A Strain of other specified muscles and tendons at ankle and foot level, left foot, initial encounter; S93.492A Sprain of other ligament of left ankle, initial encounter; M65.972 Unspecified synovitis and tenosynovitis, left ankle and foot
CPT/HCPCS: 73721

== ENCOUNTER → 2024-04-11 13:45 | Outpatient (CLI) | payer MEDICARE, SELFPAY ==
--- NOTE | 2024-04-11 13:46 | DI.RAD.S_ITS ---
PROCEDURE: XR KNEE LT 3V INDICATIONS: LEFT KNEE PAIN TECHNIQUE: 3 views of the knee were acquired. COMPARISON: [facility], , XR KNEE LT 3V, 03/31/2020, 13:56. FINDINGS: Bones: No fractures or dislocations. No suspicious bony lesions. Soft tissues: No joint effusion. No suspicious soft tissue calcifications. IMPRESSION: No acute bony abnormality or significant effusion. Approved by: Colt Ryan M.D. on 04/11/2024 at 14:00
== END ==
PROVIDERS: PCP Internal Medicine Geriatric Medicine; Referring Provider Physical Medicine & Rehabilitation; Visit Provider Physical Medicine & Rehabilitation
DX: M17.0 Bilateral primary osteoarthritis of knee (principal); M16.0 Bilateral primary osteoarthritis of hip; M70.62 Trochanteric bursitis, left hip; M76.62 Achilles tendinitis, left leg; M54.17 Radiculopathy, lumbosacral region
CPT/HCPCS: 20611; 73562; 99213; J7318